=== PATIENT | female | born 1960 | race Caucasian/White ===

== ENCOUNTER 2023-10-05 21:41 | Emergency (ER) | payer OTHER, SELFPAY ==
--- NOTE | ~2023-10-05 | XR_ITS ---
Clinical Indication: Pneumonia PA and lateral views of the chest: Comparison: 03/11/2007 Findings: Small left pleural effusion present with probable left basilar atelectatic change. Right cassandra ng clear. Cardiomediastinal silhouette is within normal limits. Bones and soft tissues are unremarka ble. Impression: Small left pleural effusion and probable left basilar atelectasis. Correlate clinically for pneumonia . Reviewed, dictated and finalized at location . Impression: Small left pleural effusion and probable left basilar atelectasis. Correlate cl inically for pneumonia.
[2023-10-05 21:44] VITALS: BP 141/67; PULSE 87; RESP 18; TEMP 36.9; O2SAT 97
[2023-10-06 01:09] VITALS: RESP 18; O2SAT 100
[2023-10-06 01:28] LABS: Basophils Absolute Auto 0.1 K/mm3 (0.0-0.1); Basophils Percent Auto 0.7 % (0.2-1.2); Eosinophils Absolute Auto 0.3 K/mm3 (0-0.3); Eosinophils Percent Auto 3.6 % (0-4.4); Hemoglobin 12.9 g/dL (12.0-15.0); Immature Granulocyte Absolute 0.02 K/mm3 (0.00-0.031); Immature Granulocyte Percent A 0.3 % (0-0.5); Lymphocytes Absolute Auto 1.53 K/mm3 (0.9-3.2); Lymphocytes Percent Auto 20.4 % (18.3-44.2); Mean Corpuscular HGB Conc 32.3 g/dl (32-36); Mean Corpuscular Hemoglobin 28.2 pg (26-34); Mean Corpuscular Volume 87.5 fl (80-100); Monocytes Absolute Auto 0.5 K/mm3 (0.1-0.6); Monocytes Percent Auto 6.8 % (2.6-8.5); Neutrophils Absolute Auto 5.1 K/mm3 (1.3-6.7); Neutrophils Percent Auto 68.2 % (45.5-73.1); Platelet Count Result 372 k/mm3 (150-375); Red Blood Count 4.57 M/mm3 (4.2-5.4); Red Cell Distribution Width 13.2 % (11.5-14.5); White Blood Count 7.5 K/mm3 (4.5-10.0)
[2023-10-06 01:40] LABS: Alanine Aminotransferase 62 U/L (6-35); Albumin Level 4.9 g/dL (3.5-5.1); Alkaline Phosphatase 77 U/L (38-126); Anion Gap 3 mmol/L (4-12); Aspartate Amino Transferase 80 U/L (14-36); Bilirubin,Total 0.7 mg/dL (0.2-1.3); Blood Urea Nitrogen 10 mg/dL (7-17); Calcium 9.2 mg/dL (8.4-10.2); Carbon Dioxide 35 mmol/L (22-30); Chloride 98 mmol/L (98-107); Estimated CRCL calculation 45 ml/min; Estimated Glomerular Filt Rate > 60; Glucose 117 mg/dL (65-110); Potassium 3.7 mmol/L (3.4-5.0); Sodium 136 mmol/L (137-145)
--- NOTE | 2023-10-06 02:25 | ED.GENADULT ---
HPI - General Adult General Chief complaint: Unspecified Stated complaint: broken ribs, pneumonia, not getting better Time Seen by Provider: 10/06/23 01:48 History of Present Illness HPI narrative: Patient is a 63-year-old female who presents to the emergency department this evening complaining of left-sided rib pain. Patient states that on Wednesday she fell off of a truck and landed on her left side. That time, patient went to an Urgent Care and chest x-ray was performed she was informed that she does not have any rib fractures. Due to continued pain, patient went to a different emergency department on Wednesday and repeat x-ray revealed that she does have some left-sided rib fractures and pneumonia. Patient states that after the fall on Wednesday she wrapped her chest and when she went to the ED on Wednesday she was told at the wrapping caused her to develop pneumonia. Patient now states that the cough that she has secondary to the pneumonia is causing her left-sided rib pain to hurt even more. When she is not coughing the pain is controlled. Patient was prescribed oral morphine and amoxicillin which she has been taking. Patient is requesting for some cough medicine to completely stop her coughing. She is denying any fevers or chills at home, any abdominal pain, nausea vomiting, denies any additional injuries or concerns at this time. Related Data Home Medications Medication Instructions Recorded Confirmed atorvastatin 40 mg tablet 40 mg PO DAILY 04/10/19 05/16/19 bupropion HCl 300 mg 24 hr tablet, 300 mg PO QAM 04/10/19 05/16/19 extended release levothyroxine 175 mcg tablet 175 mcg PO DAILY 04/10/19 05/16/19 sertraline 50 mg tablet 50 mg PO DAILY 04/10/19 05/16/19 lactobacillus combination no.4 3 3,000 mmu cells PO DAILY 05/12/19 05/16/19 billion cell capsule (Probiotic) Allergies Allergy/AdvReac Type Severity Reaction Status Date / Time No Known Allergies Allergy Verified 10/05/23 21:51 Review of Systems Review of Systems: All systems are reviewed and are negative unless stated otherwise in the HPI. [facility] Past Medical History Medical History Belching Bloating Colon cancer screening Depression Erosive gastritis Headache High cholesterol Irritable bowel syndrome with constipation Thyroid disease Exam Narrative: General: Alert, awake, afebrile, in no acute distress. HEENT: PERRL, no rhinorrhea, no post nasal drip, oropharynx clear. Neck: Trachea midline, no JVD, no lymphadenopathy. Cardiovascular: Regular rate and rhythm, no murmurs, rubs or gallops, no peripheral edema. Respiratory: Clear to auscultation bilaterally, no tachypnea, no wheezing, no rhonchi, no rubs, no respiratory distress. Abdomen: Soft, nontender, nondistended, no rebound, no guarding, no peritoneal signs. Musculoskeletal: Tenderness to palpation along the left lower lateral ribs. Skin: No rashes or petechia, no signs of infection. Psychiatric: Alert and oriented, normal behavior and judgment for situation. Neurological: Alert and oriented to person, place, and time. Follows all commands. No focal deficits, speech is clear and fluent. Course Vital Signs Vital signs: Vital Signs Temperature 98.4 F 10/05/23 21:44 Pulse Rate 87 10/05/23 21:44 Respiratory Rate 18 10/05/23 21:44 Blood Pressure 141/67 H 10/05/23 21:44 Pulse Oximetry 97 10/05/23 21:44 Oxygen Delivery Room Air 10/05/23 21:44 Temperature 98.4 F 10/05/23 21:44 Pulse Rate 66 10/06/23 03:06 Respiratory Rate 18 10/06/23 03:06 Blood Pressure 118/68 10/06/23 03:06 Pulse Oximetry 95 10/06/23 03:06 Oxygen Delivery Room Air 10/05/23 21:44 Medical Decision Making MDM Narrative Medical decision making narrative: The patient was evaluated by myself in the emergency department. History is obtained from patient who is an independent historian and physical exam was performed. Exte
[2023-10-06] MEDS: ONDANSETRON INJ 4 MG/2 ML VIAL IV PUSH (02:32)
[2023-10-06] MEDS: MORPHINE SULFATE (*CRX) 4 MG/ML INJ IV PUSH (02:32)
[2023-10-06] MEDS: BENZONATATE 100 MG CAPSULE 200 MG PO (02:34)
[2023-10-06 03:06] VITALS: BP 118/68; PULSE 66; RESP 18; O2SAT 95
[2023-10-06] MEDS: LIDOCAINE 5% PATCH 1 PATCH TRANSDERM (03:45)
[2023-10-06] MEDS: diphenhydrAMINE HCl INJ 50 MG/ML VIAL IV PUSH (03:47)
[2023-10-06] MEDS: guaiFENesin/DEXTROMETHORPHAN 10 ML UDC PO (04:04)
== END 2023-10-06 04:12 | disposition home or self-care (01) ==
PROVIDERS: Emergency Provider Emergency Medicine
DX: R07.81 Pleurodynia (principal); W17.89XA Other fall from one level to another, initial encounter; F32.A Depression, unspecified; E07.9 Disorder of thyroid, unspecified
CPT/HCPCS: 36415; 71046; 80053; 85025; 96374; 96375; 99284; A9270; J1200; J2270; J2405